=== PATIENT | female | born 2005 | race Caucasian/White ===

== ENCOUNTER 2023-11-11 03:20 | Inpatient (IN) | payer BC ==
[2023-11-11] MEDS ORDERED: Nalbuphine HCl 10 MG/ 1ML Amp IVPUSH PRN (03:54)
[2023-11-11] MEDS ORDERED: Sodium Chloride 0.9% 10 ML Syringe FLUSH PRN (03:54)
[2023-11-11] MEDS ORDERED: Lidocaine 1% 50 ML MDV INJECT PRN (03:54)
[2023-11-11 04:43] LABS: BASOPHILS ABSOLUTE AUTO 0.1 K/mm3 (0.0-0.3); BASOPHILS PERCENT AUTO 0.4 % (0.0-1.0); EOSINOPHILS ABSOLUTE AUTO 0.6 K/mm3 (0.0-0.7); EOSINOPHILS PERCENT AUTO 3.8 % (0.0-5.0); HEMATOCRIT 39.7 % (37.0-47.0); HEMOGLOBIN 13.9 gm/dl (12.0-16.0); IMMATURE GRAN ABSOLUTE AUTO 0.08 K/mm3 (0.00-0.05); IMMATURE GRAN PERCENT AUTO 0.5 % (0.0-0.4); LYMPHOCYTES ABSOLUTE AUTO 3.1 K/mm3 (2.0-8.8); LYMPHOCYTES PERCENT AUTO 21.2 % (50.0-65.0); MEAN CORPUSCULAR HEMOGLOBIN 32.9 pg (28.0-32.0); MEAN CORPUSCULAR VOLUME 93.9 fl (83.0-99.0); MEAN PLATELET VOLUME 9.9 fl (9.4-12.3); MONOCYTES PERCENT AUTO 6.4 % (2.0-10.0); NEUTROPHILS PERCENT AUTO 67.7 % (35.0-45.0); PLATELET COUNT,PLT 339 K/mm3 (150-400); RED BLOOD CELL COUNT 4.23 M/mm3 (4.10-5.30)
[2023-11-11] MEDS: Misoprostol 25 MCG (1/4 of 100 MCG) Tab VAG ONE (05:10)
[2023-11-11 05:19] LABS: CREATININE,URINE RAND 76.2 mg/dL (30.0-125.0); PROTEIN CREATININE RATIO,URINE 152.2 mg/g (0-149); PROTEIN,URINE RANDOM 11.6 mg/dL (0.0-11.8)
[2023-11-11 05:21] LABS: CREATININE 0.8 mg/dL (0.55-1.02); EST CRCL DRUG DOSING (CG) 89.46 mL/min; URIC ACID 7.3 mg/dL (2.6-6.0)
[2023-11-11] MEDS ORDERED: ePHEDrine 50 MG/ML SDV IVPUSH PRN (08:43)
[2023-11-11] MEDS ORDERED: diphenhydrAMINE 50 MG/ML SDV IVPUSH PRN (08:43)
[2023-11-11] MEDS ORDERED: Sodium Chloride 0.9% 10 ML Syringe FLUSH SCH (09:00)
[2023-11-11] MEDS: Lactated Ringers 1,000 ML IV SCH (09:43)
[2023-11-11] MEDS: Oxytocin/Lactated Ringers 30 UNIT/500 ML BAG IV SCH ×2 (09:45→15:43)
[2023-11-11] MEDS: Ondansetron 4 MG/2 ML SDV IVPUSH PRN (10:32)
[2023-11-11] MEDS: Bupivacaine/fentaNYL/NS 100 ML Bag EPIDUR PRN (11:32)
[2023-11-11] MEDS: fentaNYL 100 MCG/2 ML SDV EPIDUR PRN (11:33)
[2023-11-11] MEDS ORDERED: Tranexamic Acid 1,000 MG/10 ML Vial ONE (14:51)
[2023-11-11] MEDS: Misoprostol 200 MCG Tab BUCCAL STA (14:52)
[2023-11-11] MEDS: Carboprost Tromethamine 250 MCG/1 mL Vial IM STA (14:57)
[2023-11-11] MEDS: Tranexamic Acid 1,000 MG/10 ML Vial IV ONE (15:05)
[2023-11-11 15:35] LABS: HEMATOCRIT 32.3 % (37.0-47.0); HEMOGLOBIN 11.3 gm/dl (12.0-16.0); MEAN CORPUSCULAR HEMOGLOBIN 33.2 pg (28.0-32.0); MEAN PLATELET VOLUME 9.5 fl (9.4-12.3); PLATELET COUNT,PLT 284 K/mm3 (150-400)
[2023-11-11] MEDS: Atropine/Diphenoxylate 0.025-2.5 MG Tab PO PRN (15:54)
[2023-11-11 16:07] LABS: PROTHROMBIN TIME 9.9 SECONDS (9.7-12.0)
[2023-11-11 16:09] LABS: PTT,PARTIAL THROMBOPLSTIN TIME 23.9 SECONDS (21.7-31.4)
[2023-11-11 16:15] LABS: INR < 0.93
[2023-11-11 16:25] LABS: FIBRINOGEN 452 mg/dL (187-446)
[2023-11-11] MEDS ORDERED: Acetaminophen 325 MG Tab PO PRN (20:55)
[2023-11-11 21:20] LABS: HEMATOCRIT 29.8 % (37.0-47.0); HEMOGLOBIN 10.4 gm/dl (12.0-16.0); MEAN CORPUSCULAR HEMOGLOBIN 33.1 pg (28.0-32.0); MEAN CORPUSCULAR HGB CONC 34.9 g/dl (32.0-36.0); MEAN CORPUSCULAR VOLUME 94.9 fl (83.0-99.0); MEAN PLATELET VOLUME 9.5 fl (9.4-12.3); PLATELET COUNT,PLT 293 K/mm3 (150-400); RED BLOOD CELL COUNT 3.14 M/mm3 (4.10-5.30); WHITE BLOOD CELL COUNT,WBC 25.24 K/mm3 (4.5-13.5)
[2023-11-11] MEDS: Ibuprofen 400 MG Tab PO SCH (21:40)
[2023-11-11] MEDS ORDERED: Witch Hazel Medicated Pads 40/Jar TOP PRN (22:27)
[2023-11-11] MEDS ORDERED: Benzocaine/Menthol 20%-0.5% Spray 78 GM Cannister TOP PRN (22:28)
[2023-11-12 06:11] LABS: BASOPHILS ABSOLUTE AUTO 0.1 K/mm3 (0.0-0.3); BASOPHILS PERCENT AUTO 0.3 % (0.0-1.0); EOSINOPHILS ABSOLUTE AUTO 0.3 K/mm3 (0.0-0.7); EOSINOPHILS PERCENT AUTO 1.6 % (0.0-5.0); HEMATOCRIT 25.3 % (37.0-47.0); IMMATURE GRAN ABSOLUTE AUTO 0.11 K/mm3 (0.00-0.05); IMMATURE GRAN PERCENT AUTO 0.6 % (0.0-0.4); LYMPHOCYTES ABSOLUTE AUTO 3.4 K/mm3 (2.0-8.8); LYMPHOCYTES PERCENT AUTO 19.8 % (50.0-65.0); MEAN CORPUSCULAR HGB CONC 35.2 g/dl (32.0-36.0); MEAN CORPUSCULAR VOLUME 93.7 fl (83.0-99.0); MEAN PLATELET VOLUME 9.5 fl (9.4-12.3); MONOCYTES PERCENT AUTO 5.5 % (2.0-10.0); NEUTROPHILS ABSOLUTE AUTO 12.6 K/mm3 (1.5-8.5); NEUTROPHILS PERCENT AUTO 72.2 % (35.0-45.0); PLATELET COUNT,PLT 245 K/mm3 (150-400); WHITE BLOOD CELL COUNT,WBC 17.39 K/mm3 (4.5-13.5)
[2023-11-12 06:13] LABS: HEMOGLOBIN 8.9 gm/dl (12.0-16.0)
[2023-11-12] MEDS: Ibuprofen 600 MG Tab PO SCH (06:56)
[2023-11-12] MEDS: Ferrous Sulfate 324 MG Tab.EC PO SCH (11:48)
[2023-11-12] MEDS ORDERED: Sennosides/Docusate Sodium 50-8.6 MG Tab PO PRN (20:44)
[2023-11-13] MEDS: Docusate Sodium 100 MG Cap PO SCH (00:11)
[2023-11-13 17:02] VITALS: BP 131/69; PULSE 94
== END 2023-11-13 16:20 | disposition home or self-care (01) | DRG 542 ==
LOC: JD.OBCHECK 03:20 → JD.OB 03:43 → JD.OBCHECK 03:55 → JD.OB 03:55 → OBSVTOIN 14:46 → JD.OB 14:47
PROVIDERS: ADMIT Obstetrics & Gynecology; ATTEND Obstetrics & Gynecology
PROC: 10E0XZZ Delivery of Products of Conception, External Approach (ICD-10-PCS; principal; 2023-11-11)
PROC: 0W3R7ZZ Control Bleeding in Genitourinary Tract, Via Natural or Artificial Opening (ICD-10-PCS; 2023-11-11)
PROC: 3E0P7VZ Introduction of Hormone into Female Reproductive, Via Natural or Artificial Opening (ICD-10-PCS; 2023-11-11)
PROC: 10907ZC Drainage of Amniotic Fluid, Therapeutic from Products of Conception, Via Natural or Artificial Opening (ICD-10-PCS; 2023-11-11)
PROC: 0HQ9XZZ Repair Perineum Skin, External Approach (ICD-10-PCS; 2023-11-11)
PROC: 3E0R3BZ Introduction of Anesthetic Agent into Spinal Canal, Percutaneous Approach (ICD-10-PCS; 2023-11-11)
PROC: 00HU33Z Insertion of Infusion Device into Spinal Canal, Percutaneous Approach (ICD-10-PCS; 2023-11-11)
DX: O13.4 Gestational [pregnancy-induced] hypertension without significant proteinuria, complicating childbirth (principal); Z37.0 Single live birth; O72.1 Other immediate postpartum hemorrhage; O99.284 Endocrine, nutritional and metabolic diseases complicating childbirth; E03.9 Hypothyroidism, unspecified; O70.0 First degree perineal laceration during delivery; O77.0 Labor and delivery complicated by meconium in amniotic fluid; Z3A.38 38 weeks gestation of pregnancy; Z88.2 Allergy status to sulfonamides; Z79.899 Other long term (current) drug therapy
CPT/HCPCS: 36415; 51701; 51702; 59025; 59409; 82565; 82570; 83615; 84156; 84450; 84460; 84520; 84550; 85025; 85027; 85384; 85610; 85730; 86592; 86850; 86900; 86901; A9270-GY; J0694; J2405; J3010; J3490; J7120; J7999

== ENCOUNTER 2024-12-23 09:40 | Emergency (ER) | payer BC ==
[2024-12-23 10:29] LABS: BASOPHILS PERCENT AUTO 0.3 % (0.0-1.0); EOSINOPHILS ABSOLUTE AUTO 0.1 K/mm3 (0.0-0.4); EOSINOPHILS PERCENT AUTO 1.9 % (0.0-6.0); HEMOGLOBIN 13.6 gm/dl (12.0-16.0); IMMATURE GRAN ABSOLUTE AUTO 0.02 K/mm3 (0.00-0.05); IMMATURE GRAN PERCENT AUTO 0.3 % (0.0-0.4); LYMPHOCYTES ABSOLUTE AUTO 2.1 K/mm3 (1.0-4.8); MEAN CORPUSCULAR HEMOGLOBIN 31.5 pg (28.0-32.0); MEAN CORPUSCULAR HGB CONC 33.2 g/dl (32.0-36.0); MEAN PLATELET VOLUME 9.3 fl (9.4-12.3); MONOCYTES ABSOLUTE AUTO 0.5 K/mm3 (0.0-0.8); MONOCYTES PERCENT AUTO 7.1 % (0.0-8.0); NEUTROPHILS PERCENT AUTO 59.4 % (41.0-71.0); RED BLOOD CELL COUNT 4.32 M/mm3 (4.10-5.30); WHITE BLOOD CELL COUNT,WBC 6.72 K/mm3 (3.9-11.3)
[2024-12-23 10:32] LABS: MEAN CORPUSCULAR VOLUME 94.9 fl (83.0-99.0); PLATELET COUNT,PLT 320 K/mm3 (150-400)
[2024-12-23 12:25] VITALS: BP 125/75; PULSE 71
== END 2024-12-23 12:20 | disposition home or self-care (01) ==
LOC: JD.ED 09:40
DX: O41.8X10 Other specified disorders of amniotic fluid and membranes, first trimester, not applicable or unspecified (principal); O46.8X1 Other antepartum hemorrhage, first trimester; E03.9 Hypothyroidism, unspecified; Z3A.01 Less than 8 weeks gestation of pregnancy; Z88.2 Allergy status to sulfonamides; Z91.09 Other allergy status, other than to drugs and biological substances; Z79.890 Hormone replacement therapy; Z79.899 Other long term (current) drug therapy
CPT/HCPCS: 36415; 76817; 76817-26; 84702; 85025; 86900; 86901; 99284

== ENCOUNTER 2025-04-27 20:48 | Emergency (ER) | payer BC ==
[2025-04-27] MEDS ORDERED: Sodium Chloride 0.9% 10 ML Syringe FLUSH PRN (21:15)
[2025-04-27 21:38] LABS: BASOPHILS ABSOLUTE AUTO 0.2 K/mm3 (0.0-0.2); BASOPHILS PERCENT AUTO 1.3 % (0.0-1.0); EOSINOPHILS ABSOLUTE AUTO 0.1 K/mm3 (0.0-0.4); EOSINOPHILS PERCENT AUTO 0.7 % (0.0-6.0); IMMATURE GRAN ABSOLUTE AUTO 0.03 K/mm3 (0.00-0.05); IMMATURE GRAN PERCENT AUTO 0.2 % (0.0-0.4); LYMPHOCYTES ABSOLUTE AUTO 10.6 K/mm3 (1.0-4.8); LYMPHOCYTES PERCENT AUTO 74.9 % (24.0-44.0); MEAN PLATELET VOLUME 8.9 fl (9.4-12.3); MONOCYTES ABSOLUTE AUTO 0.4 K/mm3 (0.0-0.8); MONOCYTES PERCENT AUTO 3.1 % (0.0-8.0); NEUTROPHILS ABSOLUTE AUTO 2.8 K/mm3 (1.8-7.7); NEUTROPHILS PERCENT AUTO 19.8 % (41.0-71.0); NRBC ABSOLUTE 0.00 (0.00-0.02); NRBC PERCENT 0.0 % (0.0-0.2); PLATELET COUNT,PLT 199 K/mm3 (150-400); RED BLOOD CELL COUNT 3.90 M/mm3 (4.10-5.30); WHITE BLOOD CELL COUNT,WBC 14.11 K/mm3 (3.9-11.3)
[2025-04-27 21:48] LABS: APPEARANCE,URINE CLEAR (Clear); GLUCOSE,URINE NEGATIVE (Negative); OCCULT BLOOD,URINE NEGATIVE (Negative)
[2025-04-27 22:00] LABS: SQUAMOUS EPITHELIAL CELLS,UR 0-5 /hpf (0-5)
[2025-04-27 22:01] LABS: A/G RATIO 0.6 (1-2); ALANINE AMINOTRANSFERASE,ALT 50.0 U/L (14-59); ASPARTATE AMNIOTRANSFERASE,AST 52.0 U/L (15-37); BILIRUBIN TOTAL 0.5 mg/dL (0.2-1.0); BLOOD UREA NITROGEN,BUN 4.0 mg/dL (7-18); CARBON DIOXIDE,CO2 25.0 mEq/L (21-32); CHLORIDE,CL 101.0 mEq/L (98-107); CREATININE 0.7 mg/dL (0.55-1.02); EST CRCL DRUG DOSING (CG) 100.55 mL/min; ESTIMATED GFR 126.0 mL/min (>60); GLUCOSE RANDOM 102.0 mg/dL (70-99); POTASSIUM,K 4.6 mEq/L (3.5-5.1); PROTEIN TOTAL,TP 6.8 g/dl (6.4-8.2); SODIUM,NA 135.0 mEq/L (136-145)
[2025-04-27 22:27] LABS: RETICULOCYTE COUNT PERCENT 2.87 % (0.50-2.00)
[2025-04-28 00:58] VITALS: BP 131/64; PULSE 99
[2025-04-29 06:42] LABS: NEUTROPHILS% 16 % (41-71)
== END 2025-04-27 23:00 | disposition home or self-care (01) ==
LOC: JD.ED 20:48
DX: O23.41 Unspecified infection of urinary tract in pregnancy, first trimester (principal); O99.891 Other specified diseases and conditions complicating pregnancy; R42 Dizziness and giddiness; N39.0 Urinary tract infection, site not specified; E03.9 Hypothyroidism, unspecified; R00.2 Palpitations; Z88.2 Allergy status to sulfonamides; Z88.8 Allergy status to other drugs, medicaments and biological substances; Z79.899 Other long term (current) drug therapy; Z79.890 Hormone replacement therapy
CPT/HCPCS: 36415; 80053; 81001; 85025; 85045; 86140; 86308; 87040; 87086; 93005; 96360; 99285; J7030

== ENCOUNTER 2025-07-03 19:06 | Emergency (ER) | payer BC ==
[2025-07-03] MEDS: Magnesium Hydroxide 400 MG/5 ML Susp 30 ML Cup PO STA (19:45)
[2025-07-03 20:27] VITALS: BP 124/61; PULSE 80
== END 2025-07-03 20:31 | disposition home or self-care (01) ==
LOC: JD.ED 19:06
DX: O99.612 Diseases of the digestive system complicating pregnancy, second trimester (principal); K59.09 Other constipation; O22.42 Hemorrhoids in pregnancy, second trimester; E03.9 Hypothyroidism, unspecified; Z86.16 Personal history of COVID-19; Z88.2 Allergy status to sulfonamides; Z88.8 Allergy status to other drugs, medicaments and biological substances; Z79.890 Hormone replacement therapy; Z79.899 Other long term (current) drug therapy; Z3A.25 25 weeks gestation of pregnancy
CPT/HCPCS: 99283; A9270

== ENCOUNTER 2025-07-06 10:53 | Emergency (ER) | payer BC ==
[2025-07-06] MEDS ORDERED: Sodium Chloride 0.9% 10 ML Syringe FLUSH PRN (11:22)
[2025-07-06] MEDS: Lidocaine 2% 11 ML Jelly Filled Syringe MUCMEM ONE (11:40)
[2025-07-06 11:48] LABS: BASOPHILS ABSOLUTE AUTO 0.0 K/mm3 (0.0-0.2); BASOPHILS PERCENT AUTO 0.3 % (0.0-1.0); EOSINOPHILS ABSOLUTE AUTO 0.2 K/mm3 (0.0-0.4); EOSINOPHILS PERCENT AUTO 1.4 % (0.0-6.0); IMMATURE GRAN ABSOLUTE AUTO 0.04 K/mm3 (0.00-0.05); IMMATURE GRAN PERCENT AUTO 0.4 % (0.0-0.4); LYMPHOCYTES ABSOLUTE AUTO 2.4 K/mm3 (1.0-4.8); LYMPHOCYTES PERCENT AUTO 21.7 % (24.0-44.0); MEAN PLATELET VOLUME 8.8 fl (9.4-12.3); MONOCYTES ABSOLUTE AUTO 0.7 K/mm3 (0.0-0.8); MONOCYTES PERCENT AUTO 6.6 % (0.0-8.0); NEUTROPHILS ABSOLUTE AUTO 7.6 K/mm3 (1.8-7.7); NEUTROPHILS PERCENT AUTO 69.6 % (41.0-71.0); NRBC ABSOLUTE 0.00 (0.00-0.02); NRBC PERCENT 0.0 % (0.0-0.2); PLATELET COUNT,PLT 318 K/mm3 (150-400); RED BLOOD CELL COUNT 3.90 M/mm3 (4.10-5.30); WHITE BLOOD CELL COUNT,WBC 10.95 K/mm3 (3.9-11.3)
[2025-07-06 12:09] LABS: A/G RATIO 0.6 (1-2); ALANINE AMINOTRANSFERASE,ALT 13.0 U/L (14-59); ASPARTATE AMNIOTRANSFERASE,AST 13.0 U/L (15-37); BILIRUBIN TOTAL 0.3 mg/dL (0.2-1.0); BLOOD UREA NITROGEN,BUN 5.0 mg/dL (7-18); CARBON DIOXIDE,CO2 25.0 mEq/L (21-32); CHLORIDE,CL 106.0 mEq/L (98-107); CREATININE 0.5 mg/dL (0.55-1.02); EST CRCL DRUG DOSING (CG) 140.77 mL/min; ESTIMATED GFR 137.0 mL/min (>60); GLUCOSE RANDOM 102.0 mg/dL (70-99); POTASSIUM,K 3.8 mEq/L (3.5-5.1); PROTEIN TOTAL,TP 6.9 g/dl (6.4-8.2); SODIUM,NA 140.0 mEq/L (136-145)
[2025-07-06 13:56] VITALS: BP 102/88; PULSE 80
== END 2025-07-06 12:58 | disposition home or self-care (01) ==
LOC: JD.ED 10:53
DX: K59.09 Other constipation (principal); E03.9 Hypothyroidism, unspecified; Z79.890 Hormone replacement therapy; Z79.899 Other long term (current) drug therapy; Z88.2 Allergy status to sulfonamides; Z88.8 Allergy status to other drugs, medicaments and biological substances; Z86.16 Personal history of COVID-19
CPT/HCPCS: 36415; 80053; 83735; 85025; 96360; 99283; A9270; J7030

== ENCOUNTER 2025-07-18 15:52 | Emergency (ER) | payer BC ==
[2025-07-18 18:12] LABS: BASOPHILS ABSOLUTE AUTO 0.0 K/mm3 (0.0-0.2); BASOPHILS PERCENT AUTO 0.3 % (0.0-1.0); EOSINOPHILS ABSOLUTE AUTO 0.1 K/mm3 (0.0-0.4); EOSINOPHILS PERCENT AUTO 1.3 % (0.0-6.0); IMMATURE GRAN ABSOLUTE AUTO 0.03 K/mm3 (0.00-0.05); IMMATURE GRAN PERCENT AUTO 0.3 % (0.0-0.4); LYMPHOCYTES ABSOLUTE AUTO 2.5 K/mm3 (1.0-4.8); LYMPHOCYTES PERCENT AUTO 24.6 % (24.0-44.0); MEAN PLATELET VOLUME 8.6 fl (9.4-12.3); MONOCYTES ABSOLUTE AUTO 0.6 K/mm3 (0.0-0.8); MONOCYTES PERCENT AUTO 6.3 % (0.0-8.0); NEUTROPHILS ABSOLUTE AUTO 6.9 K/mm3 (1.8-7.7); NEUTROPHILS PERCENT AUTO 67.2 % (41.0-71.0); NRBC ABSOLUTE 0.00 (0.00-0.02); NRBC PERCENT 0.0 % (0.0-0.2); PLATELET COUNT,PLT 343 K/mm3 (150-400); RED BLOOD CELL COUNT 4.07 M/mm3 (4.10-5.30); WHITE BLOOD CELL COUNT,WBC 10.23 K/mm3 (3.9-11.3)
[2025-07-18 18:45] LABS: A/G RATIO 0.5 (1-2); ALANINE AMINOTRANSFERASE,ALT 11.0 U/L (14-59); ASPARTATE AMNIOTRANSFERASE,AST 11.0 U/L (15-37); BILIRUBIN TOTAL 0.3 mg/dL (0.2-1.0); BLOOD UREA NITROGEN,BUN 5.0 mg/dL (7-18); CARBON DIOXIDE,CO2 23.0 mEq/L (21-32); CHLORIDE,CL 104.0 mEq/L (98-107); CREATININE 0.5 mg/dL (0.55-1.02); EST CRCL DRUG DOSING (CG) 140.77 mL/min; ESTIMATED GFR 137.0 mL/min (>60); GLUCOSE RANDOM 92.0 mg/dL (70-99); POTASSIUM,K 4.0 mEq/L (3.5-5.1); PROTEIN TOTAL,TP 7.3 g/dl (6.4-8.2); SODIUM,NA 139.0 mEq/L (136-145)
[2025-07-18 19:57] VITALS: BP 120/69; PULSE 86
== END 2025-07-18 19:57 | disposition home or self-care (01) ==
LOC: JD.ED 15:52
DX: K64.8 Other hemorrhoids (principal); E03.9 Hypothyroidism, unspecified; Z86.16 Personal history of COVID-19; Z88.2 Allergy status to sulfonamides; Z79.890 Hormone replacement therapy; Z79.899 Other long term (current) drug therapy
CPT/HCPCS: 36415; 80053; 85025; 99283; Q0144; 99284; A9270-GY